=== PATIENT | male | born 1985 | race Caucasian/White ===

== ENCOUNTER 2018-03-15 12:41 | Emergency (ER) | payer OTHER ==
[2018-03-15] MEDS ORDERED: Ketorolac INJ* 30 MG/ML 1 ML VIAL IM ONE (13:14)
--- NOTE | 2018-03-15 13:47 | ED ---
Neck Pain - HPI Summary HPI Summary: 32-year-old male presents with back pain and sternal pain after fall today. He states he slipped on a wet floor. He landed on his left side. Denies any shoulder pain. No chest pain or shortness of breath. no hip pain. This pain midline on his neck. No loss conscious. No nausea and vomiting. No other injury. Has not taking anything for his symptoms. pain greatest with ROM of area. no numbness or tinging. no pain into arms. - History of Current Complaint Chief Complaint: EDNeckComplaint Stated Complaint: FALL Time Seen by Provider: 03/15/18 13:00 Pain Intensity: 7 - Allergies/Home Medications Allergies/Adverse Reactions: Allergies Allergy/AdvReac Type Severity Reaction Status Date / Time Iodinated Contrast- Oral and Allergy Anaphylatic Verified 03/15/18 12:58 IV Dye Shock Penicillins Allergy Hives Verified 03/15/18 12:58 Home Medications: Home Medications ALPRAZolam TAB* [Xanax TAB*] 0.25 mg PO DAILY PRN MDD 1 tablet 03/15/18 [ History Confirmed 03/15/18] Albuterol HFA INHALER* [Ventolin HFA Inhaler*] 2 puff INH Q6H PRN 03/15/18 [ History Confirmed 03/15/18] Fluticasone-Salmeterol 100-50* [Advair Diskus 100-50*] 1 puff INH BID 03/15/18 [ History Confirmed 03/15/18] Lisinopril TAB* [Prinivil TAB*] 20 mg PO DAILY 03/15/18 [History Confirmed 03/15] Venlafaxine EXT RELEASE CAP* [Effexor Xr CAP*] 75 mg PO BID 03/15/18 [History Confirmed 03/15/18] PMH/Surg Hx/FS Hx/Imm Hx Cardiovascular History: Reports: Hx Hypertension Respiratory History: Reports: Hx Asthma, Hx Sleep Apnea - CPAP user, compliant Musculoskeletal History: Reports: Hx Orthopedic Injury - (right) rib fx -8th, Other Musculoskeletal History - obesity Psychiatric History: Reports: Hx Anxiety, Hx Depression - meds - Surgical History Surgery Procedure, Year, and Place: HAND SURGERY - Immunization History Immunizations Up to Date: Yes Infectious Disease History: No Infectious Disease History: Denies: History Other Infectious Disease, Traveled Outside the [place] in Last 30 Days - Family History Known Family History: Positive: None - Social History Alcohol Use: Occasionally Substance Use Type: Reports: None Smoking Status (MU): Never Smoked Tobacco Have You Smoked in the Last Year: No Review of Systems Negative: Fever Positive: Other - sternal pain. Negative: Chest Pain Negative: Shortness Of Breath Positive: Myalgia - neck pain All Other Systems Reviewed And Are Negative: Yes Physical Exam Triage Information Reviewed: Yes Vital Signs On Initial Exam: Initial Vitals Temp Pulse Resp BP Pulse Ox 99 F 73 16 138/87 98 03/15/18 12:54 03/15/18 12:54 03/15/18 12:54 03/15/18 12:54 03/15/18 12:54 Vital Signs Reviewed: Yes Appearance: Positive: Well-Appearing Skin: Positive: Warm, Dry Head/Face: Positive: Normal Head/Face Inspection Eyes: Positive: Normal, Conjunctiva Clear ENT: Positive: Pharynx normal Neck: Positive: Other: - tenderness midline neck, Full ROM Respiratory/Lung Sounds: Positive: Clear to Auscultation, Breath Sounds Present , Other - tenderness lower sternum Cardiovascular: Positive: Normal, RRR Abdomen Description: Positive: Nontender, Soft Bowel Sounds: Positive: Present Musculoskeletal: Positive: Normal Neurological: Positive: Sensory/Motor Intact, CN Intact II-III, Normal Gait Psychiatric: Positive: Normal Diagnostics - Vital Signs Vital Signs Temp Pulse Resp BP Pulse Ox 03/15/18 12:54 99 F 73 16 138/87 98 - Laboratory Lab Statement: Any lab studies that have been ordered have been reviewed, and results considered in the medical decision making process. - Radiology cervical Xray Interpretation: No Acute Changes Radiology Interpretation Completed By: Radiologist sternum Xray Interpretation: No Acute Changes Radiology Interpretation Completed By: Radiologist Neck Course/Dx - Course Course Of Treatment: 32-year-old male presents with back pain and sternal pain after fall today. He states he slipped on a wet floor. He landed on his left side. Denies any shoulder pain. No chest pain or shortness of breath. no hip pain. This pain midline on his neck. No loss conscious. No nausea and vomiting. No other injury. Has not taking anything for his symptoms. pain greatest with ROM of area. On exam tenderness midline neck. Full range of motion. Good strength upper extremities. Tenderness over lower sternum. Lungs clear to auscultation. Nontender ribs. neck and sternum xray normal. will discharge on muscle relaxer. patient understand and agrees with plan. - Diagnoses Differential Dx/HQI/PQRI: Positive: Cervical Fracture, Sprain, Strain Provider Diagnoses: Neck pain, Sternum pain, Fall Discharge - Sign-Out/Discharge Documenting (check all that apply): Discharge/Admit/Transfer - Discharge Plan Condition: Good Disposition: HOME Prescriptions: tiZANidine TAB* [Zanaflex TAB*] 2 mg PO BID #6 tab Patient Education Materials: Acute Neck Pain (ED) Referrals: Floyd Severino MD [Primary Care Provider] - Additional Instructions: Take muscle relaxers up to two times a day for pain Use ibuprofen or Tylenol for pain every 6 hours ice/heat area, move as much as possible Follow up with primary within 5 days Return to ED if develop any new or worsening symptoms - Billing Disposition and Condition Condition: GOOD Disposition: Home
--- NOTE | 2018-03-15 14:07 | RAD ---
Indication: Neck pain post fall. Comparison: November 13, 2015 CT Technique: AP, open-mouth odontoid, lateral, and oblique views cervical spine. Report: Normal alignment from the craniocervical junction through the cervicothoracic junction. Negative for fracture. Preserved disc spaces. Oblique views are negative for osseous foraminal stenosis. Unremarkable prevertebral soft tissue contours. IMPRESSION: No radiographic evidence for cervical spine injury.
--- NOTE | 2018-03-15 14:09 | RAD ---
Indication: Sternal pain post fall. Comparison: No relevant prior exams available on the [facility] for comparison. Technique: AP and oblique views of the sternum. Report: The manubrium and body of the sternum are intact without evidence for fracture. The soft tissue contours are normal. IMPRESSION: No radiographic evidence for sternal fracture.
[2018-03-15 14:51] VITALS: BP 124/85
== END 2018-03-15 14:49 | disposition home or self-care (01) ==
LOC: ED 12:41
DX: M54.2 Cervicalgia (principal); R07.2 Precordial pain; F32.9 Major depressive disorder, single episode, unspecified; F41.9 Anxiety disorder, unspecified; I10 Essential (primary) hypertension; G47.30 Sleep apnea, unspecified; W01.0XXA Fall on same level from slipping, tripping and stumbling without subsequent striking against object, initial encounter; Y92.9 Unspecified place or not applicable; J45.909 Unspecified asthma, uncomplicated
CPT/HCPCS: 71120; 72050; 96372; 99282; J1885